=== PATIENT | male | born 1985 | race Caucasian/White ===

== ENCOUNTER 2020-08-10 23:13 | Emergency (ER) | payer OTHER ==
[~2020-08-10] VITALS: Ht 182.9 cm; Wt 86.2 kg
[2020-08-11] MEDS ORDERED: REDNESS RELIEF15 ML OP (01:16)
[2020-08-11] MEDS ORDERED: GARAMYCIN OPHT3.5 GM OP (01:16)
== END 2020-08-11 01:19 | disposition home or self-care (01) ==
LOC: ER 23:13
DX: T15.12XA Foreign body in conjunctival sac, left eye, initial encounter (principal); W22.8XXA Striking against or struck by other objects, initial encounter; Y93.89 Activity, other specified; Y92.89 Other specified places as the place of occurrence of the external cause; Y99.8 Other external cause status